=== PATIENT | male | born 1990 | race Caucasian/White ===

== ENCOUNTER 2020-05-10 17:13 | Emergency (ER) | payer OTHER ==
[~2020-05-10] VITALS: Ht 195.6 cm; Wt 106.6 kg
[2020-05-10] MEDS ORDERED: NORCO 5-325 TA1 EACH PO (21:16)
== END 2020-05-10 21:31 | disposition home or self-care (01) ==
LOC: ED 17:13
DX: R10.32 Left lower quadrant pain (principal); R19.7 Diarrhea, unspecified; F17.200 Nicotine dependence, unspecified, uncomplicated
CPT/HCPCS: 74177; 80053; 81001; 83690; 85025; 96375; 99284-25; J1170; J2405; J7030; Q9967

== ENCOUNTER 2023-11-27 19:20 | Emergency (ER) | payer OTHER ==
[~2023-11-27] VITALS: Ht 195.6 cm; Wt 91.3 kg
[~2023-11-27 19:20] MED LIST: NORCO 5-325 TA1 EACH PO
[2023-11-27] MEDS ORDERED: propofoL 200 MG/20 ML VIAL IV ONE (19:45)
[2023-11-27] MEDS ORDERED: fentaNYL citrate 100 MCG/2 ML VIAL IV ONE (19:45)
[2023-11-27 20:09] LABS: ALBUMIN 4.5 g/dL (3.4-5.0); ALBUMIN/GLOBULIN RATIO 1.41 (1.1-2.4); ANION GAP 19.1 (7-21); BILIRUBIN, TOTAL 1.1 ng/dL (0.2-1.0); BUN/CREATININE RATIO 4.57 (6.0-28.6); CALCIUM 10.2 mg/dL (8.5-10.1); CREATININE, SERUM 1.53 mg/dL (0.70-1.30); POTASSIUM 3.1 mmol/L (3.5-5.1); PROTEIN, TOTAL 7.7 g/dL (6.4-8.2)
[2023-11-27] MEDS ORDERED: HYDROmorphone HCL 1 MG/ML SYR IV PRN (20:15)
[2023-11-27] MEDS ORDERED: PERCOCET 5-3251 EACH PO (20:28)
[2023-11-27] MEDS ORDERED: OXYCODONE/ACETAMINOPHEN 1 TAB HOME.PACK PO ONE (20:45)
[2023-11-27 21:15] VITALS: BP 132/91
== END 2023-11-27 21:19 | disposition home or self-care (01) ==
LOC: ED 19:20
PROVIDERS: Family Medicine
DX: S52.121A Displaced fracture of head of right radius, initial encounter for closed fracture (principal); F17.200 Nicotine dependence, unspecified, uncomplicated; W51.XXXA Accidental striking against or bumped into by another person, initial encounter; Y93.75 Activity, martial arts
CPT/HCPCS: 36415; 73070; 73080; 80053; 85025; 85610; J1170; J2704; J3010